=== PATIENT | male | born 1975 | race Caucasian/White ===

== ENCOUNTER 2024-06-29 04:52 | Inpatient (IN) | payer OTHER ==
[2024-06-29] VITALS (26 sets, daily range): BP systolic 115–142; BP diastolic 75–104
[~2024-06-29] VITALS: Ht 190.5 cm; Wt 106.3 kg
[2024-06-29 05:19] LABS: BASOPHILS ABSOLUTE AUTO 0.09 K/mm3 (0.00-0.23); BASOPHILS PERCENT AUTO 1 % (0-2); EOSINOPHILS ABSOLUTE AUTO 0.46 K/mm3 (0.00-0.68); EOSINOPHILS PERCENT AUTO 5 % (0-6); Hematocrit 44.1 % (37.0-53.0); Hemoglobin 15.4 g/dL (13.5-17.5); IMMATURE GRAN ABSOLUTE AUTO 0.03 K/mm3 (0.00-0.10); IMMATURE GRAN PERCENT AUTO 0 % (0-1); LYMPHOCYTES ABSOLUTE AUTO 3.37 K/mm3 (0.84-5.20); LYMPHOCYTES PERCENT AUTO 38 % (21-46); MONOCYTES ABSOLUTE AUTO 0.82 K/mm3 (0.16-1.47); MONOCYTES PERCENT AUTO 9 % (4-13); Mean Corpuscular HGB 29.2 pg (26.0-34.0); Mean Corpuscular HGB Conc 34.9 g/dL (31.5-36.5); Mean Corpuscular Volume 84 fL (80-100); Mean Platelet Volume 9.6 fL (9.1-12.4); NEUTROPHILS ABSOLUTE AUTO 4.16 K/mm3 (1.96-9.15); NEUTROPHILS PERCENT AUTO 47 % (41-73); Platelet Count 233 K/mm3 (150-400); RDW Coefficient Variation 12.1 % (11.7-14.2); RDW Standard Deviation 36.8 fL (35.1-46.3); Red Blood Cell Count 5.27 M/mm3 (4.30-5.90); White Blood Cell Count 8.93 K/mm3 (4.00-11.30)
[2024-06-29] MEDS ORDERED: Aspirin 325 MG Tab ONE (05:29)
[2024-06-29] MEDS ORDERED: Heparin Sodium 5000 Units/ML 1ML MDV IV ONE (05:35)
[2024-06-29] MEDS ORDERED: Aspirin 325 MG Tab PO ONE (05:35)
[2024-06-29] MEDS ORDERED: Verapamil HCL 2.5 MG/ML 2ML Injection ONE (05:56)
[2024-06-29 05:57] LABS: Albumin/Globulin Ratio 1.2 (0.8-1.8); Bilirubin, Total 0.4 mg/dL (0.1-1.0); Bun/Creatinine Ratio 15.3 (12.0-20.0); Calcium, Blood 9.5 mg/dL (8.5-10.1); Creatinine, Blood 0.98 mg/dL (0.60-1.20); Globulin, Blood 3.4 g/dL (2.2-4.0); Potassium, Blood 3.9 mmol/L (3.5-5.5); Total Protein, Blood 7.4 g/dL (6.4-8.2)
[2024-06-29] MEDS ORDERED: NS 250 ML IV ONE (05:57)
[2024-06-29] MEDS ORDERED: Heparin Sodium 1000 Units/ML 10ML MDV ONE (05:57)
[2024-06-29] MEDS ORDERED: NS 1,000 ML IV ONE ×3 (05:57→06:55)
[2024-06-29] MEDS ORDERED: Nitroglycerin 2 MG/20 ML BTL ONE (05:57)
[2024-06-29] MEDS ORDERED: Midazolam HCl 1MG / ML 2ML Vial ONE (06:02)
[2024-06-29] MEDS ORDERED: FentaNYL Citrate 50 MCG/ML 2 ML Injection ONE (06:02)
[2024-06-29] MEDS ORDERED: Atropine Sulfate 0.1 MG/ML 10ML SYR ONE (06:03)
[2024-06-29] MEDS ORDERED: Phenylephrine HCl 100 MCG/ML-NS 10MLSYR (1MG/10ML) ONE (06:03)
[2024-06-29] MEDS ORDERED: Tirofiban HCL Monohydrate 3.75 MG/15 ML Vial ONE (06:26)
[2024-06-29] MEDS ORDERED: Clopidogrel Bisulfate 300 MG Cap ONE (06:35)
[2024-06-29] MEDS ORDERED: NS 1,000 ML IV SCH (06:55)
[2024-06-29] MEDS ORDERED: Tirofiban HCL Monohydrate 3.75 MG/15 ML Vial IV ONE (06:55)
--- NOTE | 2024-06-29 08:15 | NUR ---
PT STATES HE HAS A BURNING PAIN TO MIDDLE OF CHEST 1-06/17. NOTIFIED DR. AYON, NO NEW ORDERS.
[2024-06-29 08:20] LABS: International Normalized Ratio 1.01; Prothrombin Time Results 10.8 Sec (9.7-11.5)
[2024-06-29] MEDS ORDERED: Losartan Potassium 25 MG Tab PO SCH (09:00)
[2024-06-29] MEDS ORDERED: Metoprolol Tartrate 25 MG Tab PO SCH (09:00)
[2024-06-29] MEDS ORDERED: Aspirin 81 MG Chew PO SCH (09:00)
[2024-06-29] MEDS ORDERED: Clopidogrel Bisulfate 75 MG Tab PO SCH (09:00)
--- NOTE | 2024-06-29 13:45 | NUR ---
CALLED DR. AYON ABOUT 15 SECOND RUN OF VTACH. PT DENIES CP OR SOB, JUST FELT A FLUTTER IN CHEST. NO NEW ORDERS.
--- NOTE | 2024-06-29 17:42 | NUR ---
SUMMARY PT ADMITTED TO ICU 9 AT 0700 FROM TOP INVENTORY CONTROL EXECUTIVE. R RADIAL ACCESS SITE. TR BAND REMOVED THIS AM WITHOUT ISSUE. HAS ARMBOARD IN PLACE AND PT COMPLIANT WITH RESTRICTIONS. HAD BURNING SENSATION IN CHEST THIS AM THAT HAS RESOLVED. PT HAD A COUPLE RUNS OF VTACH ONE THAT WAS ABOUT 15 SECONDS, DR. AYON AWARE. PT ONLY HAD A FLUTTER SENSATION IN CHEST OTHERWISE NO CP WITH VTACH. BP STABLE T/O. OOB TO BATHROOM WITHOUT ISSUE. VISITING WITH FAMILY, NO SIGN OF DISTRESS.
--- NOTE | 2024-06-29 18:52 | NUR ---
AFTER PT GOT UP TO BATHROOM HE NOTICED A "PULLING SENSATION" IN R WRIST. PT HAD A HEMATOMA AT RADIAL ACCESS SITE. APPLIED MANUAL PRESSURE FOR 10 MINUTES. SITE IS NOW SOFT. ARMBOARD REMAINS IN PLACE. PT INSTRUCTED TO NOT GET OOB UNTIL RN OK'S IT. DR. AYON NOTIFIED, NO NEW ORDERS. WILL CHECK SITE WITH ONCOMING RN AT BEDSIDE SHIFT REPORT.
[2024-06-30] VITALS (12 sets, daily range): BP systolic 106–128; BP diastolic 71–92
--- NOTE | 2024-06-30 06:08 | NUR ---
SHIFT SUMMARY ASSUMED CARE OF PT AT 1900, PT AWAKE AND ALERT ORIENTED X4, FOLLOWS COMMANDS, ABLE TO MAKE NEEDS KNOWN, DENIES SOB OR CP, SR 60-70s, BP STABLE MAP >65, AFEBRILE, ON RA, RESP EVEN AND UNLABORED WITH SPO2 >92%, INDEPENDENT WITH ALL ADLS, VOIDS WITHOUT DIFFICULTY, NOTED RIGHT RADIAL EDEMATOUSM TENDER TO TOUCH WITH SMALL HEMATOMA, INSERTION SITE WITH NO BLEEDINGM COVERED WITH TEGADERM AND INTACT, ARM BOARD IN PLACE TO REMIND PT NOT TO USE ARM FOR PUSHING UP OR PULLING, FREQUENT CHECKS THROUGHOUT THE NIGHT WITH NO INCREASED HEMATOMA, PAIN OR SWELLING. EKG DONE THIS AM, SPOUSE REMAINS AT BEDSIDE ALL SHIFT, SIDE RAILS UP X2, CALL LIGHT IN REACH
[2024-06-30 07:44] LABS: BASOPHILS ABSOLUTE AUTO 0.08 K/mm3 (0.00-0.23); BASOPHILS PERCENT AUTO 1 % (0-2); EOSINOPHILS ABSOLUTE AUTO 0.37 K/mm3 (0.00-0.68); EOSINOPHILS PERCENT AUTO 4 % (0-6); Hematocrit 43.5 % (37.0-53.0); IMMATURE GRAN ABSOLUTE AUTO 0.02 K/mm3 (0.00-0.10); IMMATURE GRAN PERCENT AUTO 0 % (0-1); LYMPHOCYTES ABSOLUTE AUTO 2.43 K/mm3 (0.84-5.20); LYMPHOCYTES PERCENT AUTO 26 % (21-46); MONOCYTES ABSOLUTE AUTO 0.75 K/mm3 (0.16-1.47); MONOCYTES PERCENT AUTO 8 % (4-13); Mean Corpuscular HGB 28.7 pg (26.0-34.0); Mean Corpuscular HGB Conc 34.5 g/dL (31.5-36.5); Mean Corpuscular Volume 83 fL (80-100); Mean Platelet Volume 9.9 fL (9.1-12.4); NEUTROPHILS ABSOLUTE AUTO 5.88 K/mm3 (1.96-9.15); NEUTROPHILS PERCENT AUTO 62 % (41-73); Platelet Count 243 K/mm3 (150-400); RDW Coefficient Variation 12.3 % (11.7-14.2); RDW Standard Deviation 37.2 fL (35.1-46.3); Red Blood Cell Count 5.22 M/mm3 (4.30-5.90); White Blood Cell Count 9.53 K/mm3 (4.00-11.30)
[2024-06-30 08:09] LABS: Albumin, Blood 3.6 g/dL (3.4-5.0); Albumin/Globulin Ratio 1.1 (0.8-1.8); Bilirubin, Total 0.7 mg/dL (0.1-1.0); Bun/Creatinine Ratio 14.6 (12.0-20.0); Creatinine, Blood 0.82 mg/dL (0.60-1.20); Globulin, Blood 3.3 g/dL (2.2-4.0); Potassium, Blood 4.4 mmol/L (3.5-5.5); Total Protein, Blood 6.9 g/dL (6.4-8.2)
[2024-06-30] MEDS ORDERED: Clopidogrel Bisulfate 75 MG Tab PO SCH (09:00)
[2024-06-30] MEDS ORDERED: Aspirin 81 MG Chew PO SCH (09:00)
[2024-06-30] MEDS ORDERED: Atorvastatin 40 MG Tab PO SCH (09:00)
--- NOTE | 2024-06-30 09:21 | NUR ---
SHIFT ASSESSMENT ASSUMED CARE OF PT @ 0700. PT A&OX4, FOLLOWING COMMANDS, RETA. DENIES CP/SOB. C/O MILD HEADACHE, NO OTHER COMPLAINTS. NSR ON THE MONITOR. BP WNL. AMBULATES TO COMMODE WITH SBA TO MANAGE LINES. R WRIST ACCESS SITE ASSESSED WITH NOC NURSE, NO CHANGES. CALL LIGHT IN REACH.
[2024-06-30] MEDS ORDERED: ATOR40TA PO (10:28)
[2024-06-30] MEDS ORDERED: ASPI81CH PO (10:28)
[2024-06-30] MEDS ORDERED: CLOP75 PO (10:29)
[2024-06-30] MEDS ORDERED: LOSA25 PO (10:29)
[2024-06-30] MEDS ORDERED: METO25 PO (10:29)
--- NOTE | 2024-06-30 10:39 | NUR ---
SUMMARY PT DISCHARGED TO HOME WITH SPOUSE. BL IV'S REMOVED. MEDICATIONS FAXED TO [facility]. PT AMBULATED OUT WITHOUT ASSISTANCE.
== END 2024-06-30 11:31 | disposition home or self-care (01) | DRG 322 ==
LOC: ER 04:52 → ICUE 05:39
PROVIDERS: Internal Medicine; Student in an Organized Health Care Education/Training Program; ADMIT Internal Medicine Interventional Cardiology
PROC: 027034Z Dilation of Coronary Artery, One Artery with Drug-eluting Intraluminal Device, Percutaneous Approach (ICD-10-PCS; principal; 2024-06-29)
PROC: B2111ZZ Fluoroscopy of Multiple Coronary Arteries using Low Osmolar Contrast (ICD-10-PCS; 2024-06-29)
DX: I21.02 ST elevation (STEMI) myocardial infarction involving left anterior descending coronary artery (principal); I50.20 Unspecified systolic (congestive) heart failure; R73.9 Hyperglycemia, unspecified; E87.8 Other disorders of electrolyte and fluid balance, not elsewhere classified; I11.0 Hypertensive heart disease with heart failure; I25.10 Atherosclerotic heart disease of native coronary artery without angina pectoris
CPT/HCPCS: 36415; 71045; 76937; 80053; 83036; 84484; 85025; 85347; 85610; 85730; 86850; 86900; 86901; 92941; 93005; 93010; 93454; 99152; 99153; 99285-25; A9270; C1725; C1769; C1874; C1887; C1894; C8929; C9600; J0461; J1644; J2250; J2371; J3010; J3246; J7030; J7050; Q9957; Q9967